=== PATIENT | male | born 1995 | race Caucasian/White ===

== ENCOUNTER → 2023-12-02 | Outpatient (REF) | payer OTHER ==
[2023-12-02 13:44] LABS: SEMEN APPEARANCE OPAQUE (OPAQUE); SEMEN VISCOSITY LIQUID (LIQUID); SEMEN VOLUME 2.4 ml (2.0-5.0); WBC CONCENTRATION <=1 M/ml (<=1 M/ml)
[2023-12-02 13:45] LABS: SPERM CONCENTRATION 41.9 M/ml (>=15.0)
== END ==
LOC: M LAB REF 13:14
PROVIDERS: ATTEND General Practice
DX: N46.8 Other male infertility (principal)

== ENCOUNTER 2024-06-14 14:57 | Emergency (ER) | payer OTHER ==
[~2024-06-14] VITALS: Ht 180.3 cm; Wt 84.1 kg
[2024-06-14 17:08] VITALS: BP 124/81; TEMP 97.9; O2SAT 100
== END 2024-06-14 17:18 | disposition home or self-care (01) ==
LOC: EDBD 14:57 → M ED 14:57
DX: S62.231A Other displaced fracture of base of first metacarpal bone, right hand, initial encounter for closed fracture (principal); W20.8XXA Other cause of strike by thrown, projected or falling object, initial encounter; Y92.89 Other specified places as the place of occurrence of the external cause; Y93.89 Activity, other specified; Y99.1 Military activity

== ENCOUNTER 2024-06-17 09:27 | Day surgery (SDC) | payer OTHER ==
[~2024-06-17] VITALS: Ht 180.3 cm; Wt 90.4 kg
[2024-06-17] MEDS ORDERED: ROPIvacaine 0.5% 30ML VIAL PN ONE (10:00)
[2024-06-17] MEDS ORDERED: dexAMETHasone 10MG/1ML VIAL PRES.FREE PN ONE (10:00)
[2024-06-17] MEDS ORDERED: LIDOCAINE 1% SDV 5ML VIAL PN ONE (10:00)
[2024-06-17] MEDS ORDERED: ACET-907 PO (10:18)
[2024-06-17] MEDS ORDERED: MIDAZOLAM INJ 2MG/2ML VIAL As Ordered ONE (10:21)
[2024-06-17] MEDS ORDERED: HYDROmorphone HCL 2MG/ML 1ML VIAL As Ordered ONE (10:21)
[2024-06-17] MEDS ORDERED: KETOROLAC 60MG 2ML VIAL As Ordered ONE (10:22)
[2024-06-17] MEDS ORDERED: ONDANSETRON 4MG 2ML VIAL As Ordered ONE (10:22)
[2024-06-17] MEDS ORDERED: LIDOCAINE 2% 100MG/5ML SDV (FOR ANES.) As Ordered ONE (10:22)
[2024-06-17] MEDS ORDERED: propofoL 200 MG/20 ML VIAL As Ordered ONE (10:22)
[2024-06-17] MEDS ORDERED: ACETAMINOPHEN 1000MG/100ML IV BAG As Ordered ONE (10:26)
[2024-06-17] MEDS: MIDAZOLAM INJ 2MG/2ML VIAL IV PRN (12:15)
[2024-06-17] MEDS: fentaNYL 100 MCG/2 ML INJECTION IV PRN (12:16)
[2024-06-17] MEDS: ceFAZolin SOD 2 GM IV ONCE IV ONE (13:11)
[2024-06-17] MEDS ORDERED: fentaNYL 100 MCG/2 ML INJECTION As Ordered ONE (13:17)
[2024-06-17] MEDS: BACITRACIN OINTMENT 30GM TUBE As Ordered ONE (13:30)
[2024-06-17] MEDS ORDERED: PERCOCET PO (15:26)
[2024-06-17 16:30] VITALS: BP 116/70; TEMP 98.1; O2SAT 96
== END 2024-06-17 16:55 | disposition home or self-care (01) ==
LOC: M SDC 09:27
PROVIDERS: ATTEND Orthopaedic Surgery Hand Surgery
DX: S62.221A Displaced Rolando's fracture, right hand, initial encounter for closed fracture (principal); W22.8XXA Striking against or struck by other objects, initial encounter; Y92.135 Garage on military base as the place of occurrence of the external cause; Y99.1 Military activity
CPT/HCPCS: 26615; 64417; 76000; C1713; J0131; J0690; J1100; J1171; J1885; J2250; J2405; J3010

== ENCOUNTER → 2024-06-29 | Outpatient (CLI) | payer OTHER ==
[~2024-06-29] MED LIST: ACET-907 PO; PERCOCET PO
== END ==
LOC: M SOG 07:53
PROVIDERS: ATTEND Physician Assistant
DX: S62.221A Displaced Rolando's fracture, right hand, initial encounter for closed fracture (principal)

== ENCOUNTER → 2024-08-03 | Outpatient (CLI) | payer OTHER | LOC: M SOG 07:49 | PROVIDERS: ATTEND Physician Assistant | DX: S62.221D Displaced Rolando's fracture, right hand, subsequent encounter for fracture with routine healing (principal) ==

== ENCOUNTER → 2024-12-04 | Outpatient (CLI) | payer OTHER | LOC: M SOG 07:05 | PROVIDERS: ATTEND Physician Assistant | DX: S62.221D Displaced Rolando's fracture, right hand, subsequent encounter for fracture with routine healing (principal) ==

== ENCOUNTER → 2025-01-22 | Outpatient (CLI) | payer OTHER | LOC: M SOG 07:26 | PROVIDERS: ATTEND Physician Assistant | DX: S62.221D Displaced Rolando's fracture, right hand, subsequent encounter for fracture with routine healing (principal) ==

== ENCOUNTER 2025-02-22 08:27 | Day surgery (SDC) | payer OTHER ==
[~2025-02-22] VITALS: Ht 177.8 cm; Wt 87.5 kg
[2025-02-22] MEDS ORDERED: LR 1,000 ML IV SCH ×2 (08:35→11:40)
[2025-02-22] MEDS: ceFAZolin SOD 2 GM IV ONCE IV ONE (10:46)
[2025-02-22] MEDS ORDERED: KETOROLAC 30 MG/ML 1 ML VIAL As Ordered ONE (11:00)
[2025-02-22] MEDS ORDERED: LIDOCAINE 2% 100 MG/5 ML SDV (FOR ANES.) As Ordered ONE (11:00)
[2025-02-22] MEDS ORDERED: ACETAMINOPHEN 1000MG/100ML IV BAG As Ordered ONE (11:00)
[2025-02-22] MEDS ORDERED: ONDANSETRON 4MG/2ML VIAL As Ordered ONE (11:00)
[2025-02-22] MEDS ORDERED: dexAMETHasone 4 MG/ML 1 ML VIAL As Ordered ONE (11:00)
[2025-02-22] MEDS ORDERED: GLYCOPYRROLATE INJ 0.2 MG/ML 2 ML VIAL As Ordered ONE (11:00)
[2025-02-22] MEDS ORDERED: MIDAZOLAM INJ 2 MG/2 ML VIAL As Ordered ONE (11:00)
[2025-02-22] MEDS ORDERED: HYDROMORPHONE HCL 0.5 MG/0.5 ML SYRINGE IV PRN (11:40)
[2025-02-22] MEDS ORDERED: PERC5TAB12 PO (11:53)
[2025-02-22] MEDS: ONDANSETRON 4MG/2ML VIAL IV PRN (12:17)
[2025-02-22 13:12] VITALS: BP 109/64; TEMP 98.1; O2SAT 99
== END 2025-02-22 13:14 | disposition home or self-care (01) ==
LOC: M SDC 08:27
PROVIDERS: ATTEND Orthopaedic Surgery Hand Surgery
DX: T84.84XA Pain due to internal orthopedic prosthetic devices, implants and grafts, initial encounter (principal); Y79.2 Prosthetic and other implants, materials and accessory orthopedic devices associated with adverse incidents; F17.210 Nicotine dependence, cigarettes, uncomplicated
CPT/HCPCS: 20680; 76000; J0131; J0665; J0688; J1100; J1596; J1885; J2250; J2405; J3010

== ENCOUNTER → 2025-03-08 | Outpatient (CLI) | payer OTHER ==
[~2025-03-08] MED LIST changes: +PERC5TAB12 PO
== END ==
LOC: M SOG 07:48
PROVIDERS: ATTEND Physician Assistant
DX: T84.84XA Pain due to internal orthopedic prosthetic devices, implants and grafts, initial encounter (principal)

== ENCOUNTER → 2025-03-25 | Outpatient (CLI) | payer OTHER | LOC: M SOG 07:34 | PROVIDERS: ATTEND Physician Assistant | DX: S62.221A Displaced Rolando's fracture, right hand, initial encounter for closed fracture (principal); Y93.9 Activity, unspecified; Y92.9 Unspecified place or not applicable ==